=== PATIENT | male | born 1980 | race Two or more races ===

== ENCOUNTER 2021-11-10 08:52 | Inpatient (IN) | payer BC, MEDICAID ==
[~2021-11-10] VITALS: Ht 172.7 cm; Wt 103.8 kg
[2021-11-10] MEDS ORDERED: SODIUM CHLORIDE 0.9% 1,000 ML IV ONE ×2 (09:15)
[2021-11-10] MEDS ORDERED: PANTOPRAZOLE 40 MG/10 ML VIAL INJ IV ONE (09:15)
[2021-11-10] MEDS ORDERED: ONDANSETRON HCL 4 MG/2 ML VIAL IV ONE (09:15)
[2021-11-10] MEDS ORDERED: MORPHINE SULFATE 4 MG/ML SYR/VIAL IV ONE (09:15)
[2021-11-10 09:28] LABS: Basophils # (auto) 0.1 10 ^3/uL (0-0.2); Basophils % (auto) 0.7 % (0.0-2.0); Eosinophils # (auto) 0 10 ^3/uL (0-0.8); Eosinophils % (auto) 0.3 % (0.0-7.0); Hematocrit 42.9 % (41.0-53.0); Hemoglobin 14.9 g/dL (13.5-17.5); Lymphocytes # (auto) 1.4 10 ^3/uL (0.4-5.4); Lymphocytes % (auto) 10.6 % (10.0-50.0); Mean Corpuscular Hemoglobin 29.6 pg (28.0-32.0); Mean Corpuscular Hgb Conc. 34.8 g/dL (32.0-36.0); Mean Corpuscular Volume 84.9 fL (80.0-100.0); Monocytes # (auto) 0.6 10 ^3/uL (0-1.3); Monocytes % (auto) 4.3 % (0.0-12.0); Neutrophils # (auto) 11.3 10 ^3/uL (1.6-8.6); Neutrophils % (auto) 84.1 % (37.0-80.0); Nucleated Red Blood Cells % 0.1 %; Red Blood Cells 5.05 10^6/uL (4.5-5.90); Red Cell Distribution Width 13.9 % (11.8-14.3); White Blood Cell 13.4 10^3/uL (4.4-10.8)
[2021-11-10 09:54] LABS: Albumin 4.1 g/dL (3.4-5.0); Calcium 9.6 mg/dL (8.5-10.1); Potassium 3.9 mmol/L (3.5-5.1)
[2021-11-10 09:57] LABS: BUN/Creatinine Ratio 14.4; Bilirubin, Total 0.9 mg/dL (0.2-1.0); Total Protein 8.2 g/dL (6.4-8.2)
[2021-11-10 10:58] LABS: Urine Bacteria NONE SEEN /hpf (None Seen); Urine Blood Negative /uL (Negative); Urine WBC 1 /hpf (0 - 3)
[2021-11-10] MEDS ORDERED: KETOROLAC TROMETH 30 MG/ML 1ML VIAL IV ONE (11:45)
[2021-11-10] MEDS ORDERED: cefTRIAXone 1GM/50ML D5W 50 ML IV ONE (11:45)
[2021-11-10] MEDS ORDERED: LACTATED RINGER'S 1,000 ML IV ONE (13:15)
[2021-11-10] MEDS ORDERED: NITROGLYCERIN 0.4 MG SL TAB SL PRN (13:15)
[2021-11-10] MEDS ORDERED: MORPHINE SULFATE INJECTION 2 MG/ML SYRG IV PRN ×2 (13:15)
[2021-11-10] MEDS ORDERED: GASTROGRAFIN 120 ML SOL ONE (13:56)
[2021-11-10] MEDS ORDERED: LABETALOL HCL 5 MG/ML 4ML SYRINGE IV PRN (14:45)
[2021-11-10] MEDS ORDERED: LACTULOSE 20Gm/30ML SOLN PO PRN (14:45)
[2021-11-10] MEDS ORDERED: METOCLOPRAMIDE HCL 5MG/ml INJ 2ml VIAL IV PRN (14:45)
[2021-11-10] MEDS ORDERED: HYDROcodone-ACET 5/325MG TAB PO PRN (14:45)
[2021-11-10] MEDS ORDERED: metroNIDAZOLE 500MG/100ML 100 ML IV ONE (14:45)
[2021-11-10] MEDS ORDERED: LORazepam 0.5 MG TAB PO PRN (14:45)
[2021-11-10] MEDS: SODIUM CHLORIDE 0.9% 1,000 ML IV SCH ×2 (14:45→22:28)
[2021-11-10] MEDS ORDERED: hydrALAZINE HCL 20 MG/ML VL IV PRN (14:45)
[2021-11-10] MEDS ORDERED: HYDROcodone-ACET 5/325MG TAB PO ONE (14:45)
[2021-11-10] MEDS ORDERED: DOCUSATE SOD 100 MG CAP PO PRN (14:45)
[2021-11-10 15:03] LABS: Magnesium 1.9 mg/dL (1.6-2.6)
[2021-11-10 15:42] LABS: Phosphorus 0.8 mg/dL (2.5-4.90)
[2021-11-10 16:05] LABS: INR 1.13 (0.9-1.15); Partial Thromboplastin Time 25.5 sec (23.6-33.0)
[2021-11-10] MEDS ORDERED: NEUTRA-PHOS TABLET PO ONE (16:45)
[2021-11-10] MEDS ORDERED: SODIUM PHOSPHATES 40 MEQ in D5W 5% 250 ML IV ONE (16:45)
[2021-11-10] MEDS: metroNIDAZOLE 500MG/100ML 100 ML IV SCH (21:36)
[2021-11-10] MEDS: NEUTRA-PHOS TABLET PO SCH (21:36)
[2021-11-10] MEDS: PANTOPRAZOLE 40 MG/10 ML VIAL INJ IV SCH (21:36)
[2021-11-10] MEDS: ATORVASTATIN 20 MG TAB PO SCH (21:37)
[2021-11-10 23:57] VITALS: BP 105/62
[2021-11-11 05:20] VITALS: BP 102/63
[2021-11-11 05:45] LABS: Basophils # (auto) 0 10 ^3/uL (0-0.2); Basophils % (auto) 0.6 % (0.0-2.0); Eosinophils # (auto) 0.1 10 ^3/uL (0-0.8); Hematocrit 36.4 % (41.0-53.0); Hemoglobin 12.8 g/dL (13.5-17.5); Lymphocytes # (auto) 1.9 10 ^3/uL (0.4-5.4); Mean Corpuscular Hemoglobin 30.1 pg (28.0-32.0); Mean Corpuscular Hgb Conc. 35.1 g/dL (32.0-36.0); Mean Corpuscular Volume 85.7 fL (80.0-100.0); Monocytes # (auto) 0.5 10 ^3/uL (0-1.3); Monocytes % (auto) 7.1 % (0.0-12.0); Neutrophils % (auto) 61.3 % (37.0-80.0); Red Blood Cells 4.25 10^6/uL (4.5-5.90); Red Cell Distribution Width 13.4 % (11.8-14.3); White Blood Cell 6.5 10^3/uL (4.4-10.8)
[2021-11-11 05:55] LABS: Potassium 3.6 mmol/L (3.5-5.1)
[2021-11-11] MEDS: metroNIDAZOLE 500MG/100ML 100 ML IV SCH ×3 (05:56→22:32)
[2021-11-11 06:03] LABS: Albumin 3.1 g/dL (3.4-5.0); BUN/Creatinine Ratio 15.9; Bilirubin, Total 0.8 mg/dL (0.2-1.0); CRP High Sensitivity 0.2 mg/dL (< 0.3); Calcium 8.6 mg/dL (8.5-10.1); Phosphorus 3.9 mg/dL (2.5-4.90); Total Protein 6.2 g/dL (6.4-8.2); Uric Acid 5.4 mg/dL (3.5-7.2)
[2021-11-11 06:11] LABS: INR 1.18 (0.9-1.15); Partial Thromboplastin Time 29.6 sec (23.6-33.0)
[2021-11-11 08:00] VITALS: BP 101/57
[2021-11-11] MEDS: NEUTRA-PHOS TABLET PO SCH ×3 (10:14→18:00)
[2021-11-11] MEDS: cefTRIAXone 1GM/50ML D5W 50 ML IV SCH (10:15)
[2021-11-11] MEDS: ENOXAPARIN SOD 40 MG/0.4 ML SYRINGE SC SCH (10:16)
[2021-11-11] MEDS: PANTOPRAZOLE 40 MG/10 ML VIAL INJ IV SCH ×2 (10:16→22:31)
[2021-11-11 12:00] VITALS: BP 110/52
[2021-11-11] MEDS: D5W/SOD CHLO 0.9% 1,000 ML IV SCH (12:45)
[2021-11-11 16:00] VITALS: BP 116/67
[2021-11-11 22:00] VITALS: BP 100/62
[2021-11-11] MEDS: ATORVASTATIN 20 MG TAB PO SCH (22:32)
[2021-11-12] MEDS: D5W/SOD CHLO 0.9% 1,000 ML IV SCH ×3 (03:37→11:29)
[2021-11-12 05:00] VITALS: BP 115/73
[2021-11-12] MEDS: metroNIDAZOLE 500MG/100ML 100 ML IV SCH ×3 (05:31→21:46)
[2021-11-12] MEDS ORDERED: ROCURONIUM 10MG/ML 10ML VIAL IV ONE (06:50)
[2021-11-12] MEDS ORDERED: SUCCINYLCHOLINE CHLORIDE 20 MG/ML 10ML VIAL IV ONE (06:50)
[2021-11-12] MEDS ORDERED: PROPOFOL 10 MG/ML 20 ML IV ONE (07:00)
[2021-11-12] MEDS ORDERED: SODIUM CHLORIDE LOCK 10 ML ONE (07:00)
[2021-11-12] MEDS ORDERED: GLYCOPYRROLATE 0.2 MG/ML 1ML VIAL ONE (07:00)
[2021-11-12] MEDS ORDERED: DexAMETHasone SOD PHOS 10MG/1ML VIAL INJ ONE (07:00)
[2021-11-12] MEDS ORDERED: MIDAZOLAM HCL 2MG/2ML 2ml VIAL (1mg/ml) ONE (07:00)
[2021-11-12] MEDS ORDERED: MEPERIDINE HCL (25 MG/ML) 1ML VIAL ONE (07:00)
[2021-11-12] MEDS ORDERED: ONDANSETRON HCL 4 MG/2 ML VIAL ONE (07:00)
[2021-11-12] MEDS ORDERED: NEOSTIGMINE 1 MG/ML INJ (10mg/10ML VIAL) ONE (07:00)
[2021-11-12] MEDS ORDERED: fentaNYL CITRATE 100 MCG/2 ML VL ONE (07:00)
[2021-11-12] MEDS: NEUTRA-PHOS TABLET PO SCH ×3 (07:26→15:53)
[2021-11-12] MEDS ORDERED: ceFAZolin 1GM/50ML 100 ML IV ONE (07:28)
[2021-11-12] MEDS ORDERED: BUPIVACAINE W/ EPINEPH 0.25% INJ 50ML MDV ONE (07:35)
[2021-11-12] MEDS ORDERED: MORPHINE SULFATE 4 MG/ML SYR/VIAL IV PRN (08:15)
[2021-11-12] MEDS ORDERED: fentaNYL CITRATE 100 MCG/2 ML VL IV PRN (08:15)
[2021-11-12] MEDS ORDERED: HYDROmorphone HCL 2 MG/ML VL IV PRN (08:15)
[2021-11-12] MEDS ORDERED: METOCLOPRAMIDE HCL 5MG/ml INJ 2ml VIAL IV PRN (08:15)
[2021-11-12] MEDS ORDERED: KETOROLAC TROMETH 30 MG/ML 1ML VIAL IV ONE (08:15)
[2021-11-12] MEDS: cefTRIAXone 1GM/50ML D5W 50 ML IV SCH (09:00)
[2021-11-12] MEDS: PANTOPRAZOLE 40 MG/10 ML VIAL INJ IV SCH ×2 (10:00→21:47)
[2021-11-12] MEDS: ENOXAPARIN SOD 40 MG/0.4 ML SYRINGE SC SCH (10:00)
[2021-11-12] MEDS: ONDANSETRON HCL 4 MG/2 ML VIAL IV PRN ×2 (11:26→18:17)
[2021-11-12] MEDS: MORPHINE SULFATE INJECTION 2 MG/ML SYRG IV PRN ×2 (11:28→18:17)
[2021-11-12 12:39] VITALS: BP 117/73
[2021-11-12] MEDS: D5W/SOD CHL 0.45%/KCL 20MEQ 1,000 ML IV SCH ×2 (14:55→17:29)
[2021-11-12 16:59] VITALS: BP 143/76
[2021-11-12] MEDS: ATORVASTATIN 20 MG TAB PO SCH (21:48)
[2021-11-12 22:00] VITALS: BP 104/59
[2021-11-13] MEDS: MORPHINE SULFATE INJECTION 2 MG/ML SYRG IV PRN ×3 (01:18→21:58)
[2021-11-13] MEDS: D5W/SOD CHL 0.45%/KCL 20MEQ 1,000 ML IV SCH (02:25)
[2021-11-13 05:00] VITALS: BP 99/53
[2021-11-13] MEDS: metroNIDAZOLE 500MG/100ML 100 ML IV SCH ×3 (06:18→21:53)
[2021-11-13] MEDS: NEUTRA-PHOS TABLET PO SCH ×2 (07:29→12:00)
[2021-11-13 08:35] VITALS: BP 106/61
[2021-11-13] MEDS: PANTOPRAZOLE 40 MG/10 ML VIAL INJ IV SCH (09:30)
[2021-11-13] MEDS: cefTRIAXone 1GM/50ML D5W 50 ML IV SCH (09:30)
[2021-11-13] MEDS: ONDANSETRON HCL 4 MG/2 ML VIAL IV PRN ×2 (09:47→22:45)
[2021-11-13] MEDS: ENOXAPARIN SOD 40 MG/0.4 ML SYRINGE SC SCH (09:49)
[2021-11-13 10:13] LABS: Albumin 3.3 g/dL (3.4-5.0); Potassium 4.2 mmol/L (3.5-5.1)
[2021-11-13 10:16] LABS: BUN/Creatinine Ratio 9.6; Bilirubin, Total 0.7 mg/dL (0.2-1.0); Total Protein 6.8 g/dL (6.4-8.2)
[2021-11-13 10:25] LABS: Basophils # (auto) 0.1 10 ^3/uL (0-0.2); Basophils % (auto) 0.4 % (0.0-2.0); Eosinophils # (auto) 0 10 ^3/uL (0-0.8); Eosinophils % (auto) 0.2 % (0.0-7.0); Hemoglobin 14.4 g/dL (13.5-17.5); Lymphocytes # (auto) 1.9 10 ^3/uL (0.4-5.4); Lymphocytes % (auto) 15.5 % (10.0-50.0); Mean Corpuscular Hgb Conc. 35.1 g/dL (32.0-36.0); Mean Corpuscular Volume 85.4 fL (80.0-100.0); Monocytes % (auto) 7.9 % (0.0-12.0); Neutrophils # (auto) 9.4 10 ^3/uL (1.6-8.6); Nucleated Red Blood Cells % 0.1 %; Red Cell Distribution Width 13.5 % (11.8-14.3); White Blood Cell 12.4 10^3/uL (4.4-10.8)
[2021-11-13 12:45] VITALS: BP 109/58
[2021-11-13] MEDS: D5W/SOD CHLO 0.9% 1,000 ML IV SCH (13:45)
[2021-11-13 16:45] VITALS: BP 98/58
[2021-11-13 21:31] VITALS: BP 107/54
[2021-11-13] MEDS: ATORVASTATIN 20 MG TAB PO SCH (21:32)
[2021-11-14] MEDS: D5W/SOD CHLO 0.9% 1,000 ML IV SCH ×2 (00:34→09:44)
[2021-11-14 04:59] VITALS: BP 111/68
[2021-11-14] MEDS: metroNIDAZOLE 500MG/100ML 100 ML IV SCH ×3 (05:41→21:47)
[2021-11-14 08:30] VITALS: BP 115/69
[2021-11-14] MEDS: cefTRIAXone 1GM/50ML D5W 50 ML IV SCH (09:42)
[2021-11-14] MEDS: ENOXAPARIN SOD 40 MG/0.4 ML SYRINGE SC SCH (09:43)
[2021-11-14 12:27] VITALS: BP 113/72
[2021-11-14 16:10] VITALS: BP 112/73
[2021-11-14] MEDS: ATORVASTATIN 20 MG TAB PO SCH (21:48)
[2021-11-14 22:00] VITALS: BP 107/68
[2021-11-15 05:00] VITALS: BP 109/65
[2021-11-15] MEDS: metroNIDAZOLE 500MG/100ML 100 ML IV SCH ×2 (06:09→14:00)
[2021-11-15 08:30] VITALS: BP 144/87
[2021-11-15] MEDS: cefTRIAXone 1GM/50ML D5W 50 ML IV SCH (08:51)
[2021-11-15] MEDS: ENOXAPARIN SOD 40 MG/0.4 ML SYRINGE SC SCH (08:52)
[2021-11-15 12:30] VITALS: BP 123/77
[2021-11-15 12:40] VITALS: BP 144/87
== END 2021-11-15 14:46 | disposition home or self-care (01) | DRG 228 ==
LOC: ER 08:52 → OVERFLOW 13:07 → WEST WING 15:11 → TELE-WESTW 17:19
PROVIDERS: ADMIT Hospitalist; ATTEND Internal Medicine Nephrology
PROC: 0DBU0ZZ Excision of Omentum, Open Approach (ICD-10-PCS; 2021-11-12)
PROC: 0WQF0ZZ Repair Abdominal Wall, Open Approach (ICD-10-PCS; principal; 2021-11-12 08:15)
DX: K42.0 Umbilical hernia with obstruction, without gangrene (principal); K56.7 Ileus, unspecified; D72.829 Elevated white blood cell count, unspecified; K43.6 Other and unspecified ventral hernia with obstruction, without gangrene; E66.01 Morbid (severe) obesity due to excess calories; K43.0 Incisional hernia with obstruction, without gangrene; K21.9 Gastro-esophageal reflux disease without esophagitis; R00.1 Bradycardia, unspecified; E78.5 Hyperlipidemia, unspecified; I10 Essential (primary) hypertension; Z87.11 Personal history of peptic ulcer disease; Z82.49 Family history of ischemic heart disease and other diseases of the circulatory system; Z83.3 Family history of diabetes mellitus; Z91.19 Patient's noncompliance with other medical treatment and regimen; Z68.33 Body mass index [BMI] 33.0-33.9, adult; Z20.822 Contact with and (suspected) exposure to COVID-19
CPT/HCPCS: 36415; 74176; 74220; 74250; 80053; 80061; 81001; 82550; 82728; 83036; 83605; 83615; 83690; 83735; 83880; 84100; 84443; 84484; 84550; 85025; 85379; 85610; 85652; 85730; 86141; 86850; 86900; 86901; 87040; 87086; 96361; 96365; 96375; C1781; C9113; G0378; J0330; J0690; J0696; J1100; J1885; J2250; J2405; J2704; J3490; J7042; J7060